=== PATIENT | male | born 1960 | race African-American/Black ===

== ENCOUNTER 2017-07-29 08:28 | Day surgery (SDC) | payer OTHER ==
[~2017-07-29] VITALS: Ht 175.3 cm; Wt 95.5 kg
[~2017-07-29 08:28] MED LIST: ALBU8.5H3 INH; BECL8.7A INH; GUAI118L94 PO; IRBE1TAB29
[2017-07-29] MEDS ORDERED: ASPI-535 PO (09:08)
[2017-07-29] MEDS ORDERED: LISINOPRIL PO (09:08)
[2017-07-29] MEDS ORDERED: AMLODIPINE PO (09:08)
[2017-07-29] MEDS ORDERED: ATENOLOL PO (09:08)
[2017-07-29 09:12] VITALS: Ht 175.3 cm; Wt 95.5 kg
--- NOTE | 2017-07-29 10:10 | OPPN ---
Date/Time of Note Date/Time of Note DATE: 07/29/17 TIME: 10:08 Operative Report Preoperative Diagnosis Screening Postoperative Diagnosis Internal hemorrhoids No colon neoplasm was identified Operation/Procedure Performed Colonoscopy Surgeon see signature line compliance assistant None Anesthesia: MAC Estimated blood loss: none Transfusion Required none Specimen None Grafts/Implants none Complications none KOKO VILLAREAL MD Jul 29, 2017 10:10
[2017-07-29] MEDS ORDERED: PROPOFOL 40 ML ONE (10:20)
--- NOTE | 2017-07-30 10:23 | GILP ---
DATE OF PROCEDURE: 07/29/2017 NAME OF PROCEDURE: Colonoscopy. SURGEON: Los Villareal MD PREOPERATIVE DIAGNOSIS: Screening colonoscopy. POSTOPERATIVE DIAGNOSES 1. Colonoscopy all the way to the cecum. 2. Internal hemorrhoids. 3. No colon neoplasm was identified. INDICATION FOR THE PROCEDURE: Mr. Harley Mcdonnell is a 56-year-old male patient who was scheduled for screening colonoscopy. The procedure and possible complications are well-explained to the patient, he understood and consen ag to the procedure. DESCRIPTION OF PROCEDURE: Under the influence of anesthesia, the colonoscope was carefully introduc ed in the rectum and, under direct vision, it was advanced all the way to the cecum. FINDINGS: The patient had internal hemorrhoids. No colon neoplasm was identified. He tolerated the procedure very well and there was no complication from the procedure. At the end o f the procedure, he was awake with stable vital signs and he was discharged home to the care of his family. IMPRESSION: 1. Colonoscopy all the way to the cecum. 2. Internal hemorrhoids. 3. No colon neoplasm was identified. PLAN: Next screening colonoscopy in 10 years. Dictated By: LOS LEMA/CHERELLE Conf#: [id number] DID#: [id number] CC: LOS VILLAREAL MD;*EndCC*
== END 2017-07-29 11:46 | disposition home or self-care (01) ==
LOC: GIL 08:28
PROVIDERS: ATTEND Internal Medicine Gastroenterology
DX: Z12.11 Encounter for screening for malignant neoplasm of colon (principal); K64.8 Other hemorrhoids; I10 Essential (primary) hypertension; F17.210 Nicotine dependence, cigarettes, uncomplicated; F12.90 Cannabis use, unspecified, uncomplicated
CPT/HCPCS: 88305

== ENCOUNTER 2017-12-08 12:55 | Observation (INO) | END 2017-12-09 15:50 | disposition home or self-care (01) ==